=== PATIENT | female | born 2000 | race African-American/Black ===

== ENCOUNTER 2023-09-15 22:35 | Emergency (ER) | payer OTHER ==
[~2023-09-15] VITALS: Ht 170.2 cm; Wt 60.3 kg
[2023-09-15 22:42] VITALS: BP_SYST 128; PULSE 101; RESP 21; TEMP 98.7; O2SAT 97
[2023-09-15] MEDS: DIPHTH,PERTUSS(ACELL),TET VAC 0.5 ML VIAL (Tdap) I.M. ONE (23:39)
[2023-09-15] MEDS: IBUPROFEN 600 MG TABLET PO ONE (23:40)
[2023-09-16] MEDS: LIDOCAINE 1% 10 MG/ML, 20 ML MDV INJ ONE (00:14)
[2023-09-16] MEDS ORDERED: NAPR-1172 PO (01:05)
[2023-09-16 01:24] VITALS: BP_SYST 123; PULSE 97; RESP 19; TEMP 98; O2SAT 100
== END 2023-09-16 01:15 | disposition home or self-care (01) ==
LOC: SED 22:35
DX: S51.812A Laceration without foreign body of left forearm, initial encounter (principal); Z79.899 Other long term (current) drug therapy; W25.XXXA Contact with sharp glass, initial encounter; Y93.89 Activity, other specified; Y92.89 Other specified places as the place of occurrence of the external cause; Y99.8 Other external cause status
CPT/HCPCS: 90715; 99283; J2001

== ENCOUNTER 2023-09-16 14:59 | Emergency (ER) | payer OTHER ==
[~2023-09-16] VITALS: Ht 170.2 cm; Wt 61.2 kg
[~2023-09-16 14:59] MED LIST: NAPR-1172 PO
[2023-09-16 15:42] VITALS: BP_SYST 110; PULSE 84; RESP 18; TEMP 99.3; O2SAT 97
[2023-09-16 17:19] VITALS: BP_SYST 112; PULSE 80; RESP 18; TEMP 99.2; O2SAT 98
== END 2023-09-16 17:19 | disposition home or self-care (01) ==
LOC: SED 14:59
DX: S51.812D Laceration without foreign body of left forearm, subsequent encounter (principal); F12.90 Cannabis use, unspecified, uncomplicated; F17.290 Nicotine dependence, other tobacco product, uncomplicated; Z71.6 Tobacco abuse counseling; X58.XXXD Exposure to other specified factors, subsequent encounter
CPT/HCPCS: 99281

== ENCOUNTER 2023-09-29 09:03 | Emergency (ER) | payer MEDICAID, OTHER ==
[~2023-09-29] VITALS: Ht 170.2 cm; Wt 59.0 kg
[~2023-09-29 09:03] MED LIST changes: +IBUP-1969 PO; +NEOM28.36 TP
[2023-09-29 09:06] VITALS: BP_SYST 123; PULSE 87; RESP 16; TEMP 98.6; O2SAT 98
[2023-09-29] MEDS ORDERED: BACITRACIN 1 GM OINT TP ONE ×2 (09:34→09:45)
[2023-09-29] MEDS ORDERED: BACI1OIN7 TP (09:55)
[2023-09-29 10:04] VITALS: BP_SYST 123; PULSE 85; RESP 18; TEMP 98.6; O2SAT 97
== END 2023-09-29 10:03 | disposition home or self-care (01) ==
LOC: SED 09:03
DX: Z48.00 Encounter for change or removal of nonsurgical wound dressing (principal); Z79.899 Other long term (current) drug therapy
CPT/HCPCS: 99282